=== PATIENT | male | born 1965 | race Asian ===

== ENCOUNTER 2016-11-15 07:38 | Emergency (ER) | payer SELFPAY ==
[~2016-11-15] VITALS: Ht 172.7 cm; Wt 79.5 kg
[2016-11-15 08:43] VITALS: BP 133/79
== END 2016-11-15 09:38 | disposition home or self-care (01) ==
LOC: EMS 07:42
DX: S83.91XA Sprain of unspecified site of right knee, initial encounter (principal); Y93.39 Activity, other involving climbing, rappelling and jumping off; Y99.8 Other external cause status; Y92.89 Other specified places as the place of occurrence of the external cause
CPT/HCPCS: 29505; 99284

== ENCOUNTER 2016-11-22 04:10 | Emergency (ER) | payer SELFPAY ==
[~2016-11-22] VITALS: Ht 170.2 cm; Wt 80.0 kg
[2016-11-22 06:27] VITALS: BP 133/73
== END 2016-11-22 06:28 | disposition home or self-care (01) ==
LOC: EMS 04:10
DX: S83.91XA Sprain of unspecified site of right knee, initial encounter (principal); F17.210 Nicotine dependence, cigarettes, uncomplicated; X58.XXXA Exposure to other specified factors, initial encounter; Y93.89 Activity, other specified; Y92.9 Unspecified place or not applicable; Y99.9 Unspecified external cause status
CPT/HCPCS: 99281; 99406

== ENCOUNTER 2016-12-03 05:28 | Emergency (ER) | payer SELFPAY ==
[~2016-12-03] VITALS: Ht 172.7 cm; Wt 79.5 kg
[2016-12-03 07:13] VITALS: BP 135/85
== END 2016-12-03 07:26 | disposition home or self-care (01) ==
LOC: EMS 05:30
DX: S83.90XA Sprain of unspecified site of unspecified knee, initial encounter (principal); F17.210 Nicotine dependence, cigarettes, uncomplicated; X58.XXXA Exposure to other specified factors, initial encounter; Y93.89 Activity, other specified; Y92.9 Unspecified place or not applicable; Y99.9 Unspecified external cause status
CPT/HCPCS: 99281

== ENCOUNTER 2018-01-31 06:27 | Emergency (ER) | payer OTHER ==
[~2018-01-31] VITALS: Ht 172.7 cm; Wt 78.0 kg
[2018-01-31 07:52] LABS: BASOPHILS % (AUTO) 0.5 % (0.0-2.0); EOSINOPHILS % (AUTO) 3.7 % (1.0-6.0); HEMATOCRIT 48.6 % (41-53); HEMOGLOBIN 16.7 g/dL (13.5-17.5); LYMPHOCYTES # (AUTO) 0.9 K/uL (1.0-4.8); LYMPHOCYTES % (AUTO) 8.1 % (22.0-44.0); MEAN CORPUSCULAR HGB CONC 34.4 G/dL (31.0-37.0); MEAN CORPUSCULAR VOLUME 90 fL (80-100); MONOCYTES # (AUTO) 0.8 K/uL (0.1-1.0); MONOCYTES % (AUTO) 7.4 % (2.0-9.0); NEUTROPHILS # (AUTO) 8.6 K/uL (1.8-7.7); NEUTROPHILS % (AUTO) 80.3 % (40.0-70.0); PLATELET COUNT (AUTO) 272 K/uL (150-450); RED CELL DISTRIBUTION WIDTH 13.1 % (11.5-14.5)
[2018-01-31 08:01] LABS: ANION GAP 7 mmol/L (8-16); CALCIUM, TOTAL 8.3 mg/dL (8.8-10.5); CARBON DIOXIDE 27 mmol/L (22-29); CHLORIDE 105 mmol/L (98-107); CREATININE 0.98 mg/dL (0.60-1.30); GLOMERULAR FILTR. RATE CALC > 60 mL/min (>60); GLUCOSE,RANDOM 96 mg/dL (70-110); POTASSIUM 3.7 mmol/L (3.5-5.1); SODIUM SERUM 139 mmol/L (136-145); UREA NITROGEN, BLOOD 17 mg/dL (7-18)
[2018-01-31 08:20] VITALS: BP 136/86
== END 2018-01-31 08:41 | disposition home or self-care (01) ==
LOC: EMS 06:29
DX: J40 Bronchitis, not specified as acute or chronic (principal); R04.0 Epistaxis; F17.210 Nicotine dependence, cigarettes, uncomplicated
CPT/HCPCS: 99285; 99406

== ENCOUNTER 2019-01-22 06:01 | Emergency (ER) | payer OTHER ==
[~2019-01-22] VITALS: Ht 170.2 cm; Wt 81.8 kg
[2019-01-22 07:02] VITALS: BP 125/82
== END 2019-01-22 07:08 | disposition home or self-care (01) ==
LOC: EMS 06:01
DX: G62.9 Polyneuropathy, unspecified (principal); F17.210 Nicotine dependence, cigarettes, uncomplicated

== ENCOUNTER 2019-04-03 07:10 | Emergency (ER) | payer OTHER ==
[~2019-04-03] VITALS: Ht 172.7 cm; Wt 77.3 kg
[2019-04-03] MEDS ORDERED: IBUP-2354 PO (07:20)
[2019-04-03] MEDS ORDERED: ACET-66 PO (07:20)
[2019-04-03] MEDS ORDERED: DIPH1POW20 PEG (07:20)
[2019-04-03] MEDS ORDERED: DIPH1POW20 PO (07:20)
[2019-04-03 08:05] VITALS: BP 135/87
== END 2019-04-03 08:25 | disposition home or self-care (01) ==
LOC: EMS 07:12
DX: J20.9 Acute bronchitis, unspecified (principal); F17.210 Nicotine dependence, cigarettes, uncomplicated; Z79.899 Other long term (current) drug therapy

== ENCOUNTER → 2019-04-05 | Outpatient (CLI) | payer OTHER ==
[~2019-04-05] MED LIST: ACET-66 PO; DIPH1POW20 PEG; DIPH1POW20 PO; IBUP-2354 PO
== END | disposition home or self-care (01) ==
LOC: RADPV 11:38
PROVIDERS: ATTEND Physician Assistant
DX: R05 Cough (principal)

== ENCOUNTER 2022-11-02 07:49 | Emergency (ER) | payer OTHER ==
[~2022-11-02] VITALS: Ht 170.2 cm; Wt 84.1 kg
[~2022-11-02 07:49] MED LIST changes: +ACET-3385 PO; -ACET-66 PO; -IBUP-2354 PO; +IBUP-45 PO
[2022-11-02 07:59] LABS: COVID AG,FIA SOURCE NASAL SWAB
[2022-11-02 08:42] LABS: RAPID GROUP A STREP NEGATIVE (NEGATIVE)
[2022-11-02 09:00] LABS: INFLUENZA TYPE A NEGATIVE FOR TYPE A (NEGATIVE); INFLUENZA TYPE B NEGATIVE FOR TYPE B (NEGATIVE)
[2022-11-02] MEDS ORDERED: IBUP-1492 PO (09:48)
[2022-11-02 10:24] VITALS: BP 144/80
== END 2022-11-02 10:29 | disposition home or self-care (01) ==
LOC: EMS 07:54
DX: J06.9 Acute upper respiratory infection, unspecified (principal); F17.210 Nicotine dependence, cigarettes, uncomplicated; Z20.822 Contact with and (suspected) exposure to COVID-19
CPT/HCPCS: 87430; 87804; 99283